=== PATIENT | female | born 1975 | race Hispanic/Latino ===

== ENCOUNTER 2018-12-31 12:45 | Outpatient (CLI) | payer OTHER ==
--- NOTE | 2018-12-31 14:35 | Mammography Report ---
Bilateral diagnostic mammogram with spot compression of densities right and left breast: No previous studies available. CAD study utilized. History: Right breast lumps. Findings: Predominance of adipose tissue bilaterally. Focal ill-defined density measuring 7 mm in diameter at the upper posterior right breast with a 3 mm density adjacent to the chest wall in the upper posterior right breast. There is a 1 cm focal asymmetry noted in the upper mid left breast and ill-defined density in the upper posterior left breast. Spot compression of densities right breast previous effacement of densities without the presence of discrete mass. There is asymmetric 1 cm density identified in the upper posterior left breast on spot compression views and incidentally noted 1 cm asymmetry outside the compression views and the lower left breast. Impression: Sonographic examination of right breast palpable areas is recommended. Sonographic examination of asymmetric densities left breast also recommended. BI-RADS CATEGORY: 0 = Needs additional imaging evaluation ACR BI-RADS MAMMOGRAPHIC CODES: 0 = Needs additional imaging evaluation; 1 = Negative; 2 = Benign; 3 = Probably benign; 4 = Suspicious; 5 = Malignant; 6 = Known biopsy-proven malignancy COMMENT: 1. Dense breast tissue, i.e., adenosis, fibrocystic changes, etc., may obscure an underlying neoplasm. 2. Approximately 10% of cancers are not detected with mammography. 3. A negative mammography report should not delay biopsy if a clinically suspicious mass is present. COMMENT: Patient follow-up letters are generated in [employer].
== END 2018-12-31 12:46 | disposition home or self-care (01) ==
LOC: MAMMO 12:45
PROVIDERS: ATTEND Obstetrics & Gynecology
DX: N63.13 Unspecified lump in the right breast, lower outer quadrant (principal)
CPT/HCPCS: 77066

== ENCOUNTER 2019-01-14 12:57 | Outpatient (CLI) | payer OTHER ==
--- NOTE | 2019-01-17 12:50 | Ultrasound Report ---
BILATERAL BREAST ULTRASOUND: 01/14/19 12:57:00 CLINICAL: Right palpable lumps and left upper asymmetric densities. COMPARISON: 12/31/18 mammogram FINDINGS: Ultrasound of the right breast is performed with the patient feels lumps. A prominent fat lobule versus isoechoic mass at 4 o'clock 4 cm from the nipple measures 6 x 3 x 6 mm. A benign intramammary lymph node with central fat at 4 o'clock 4 cm from the nipple measures 7 x 2 x 3 mm.An oval heterogeneous hypoechoic intradermal mass in the axilla correlates with a palpable lump and measures 4 x 3 x 3 mm. Ultrasound of the left breast demonstrated a benign cyst at 3 o'clock 8 cm from the nipple measuring 3 x 4 x 2 mm and a retroareolar nodule or lymph node with central echogenicity at 6 o'clock measuring 4 x 4 x 2 mm. IMPRESSION: Probably benign bilateral findings. Recommend 6 month followup bilateral targeted breast ultrasound to reevaluate right lesions at 4 o'clock 4 cm from the nipple and left lesions at 3 o'clock 8 cm from the nipple and retroareolar at 6 o'clock. BI-RADS 3 - - Probably Benign
== END 2019-01-14 12:58 | disposition home or self-care (01) ==
LOC: US 12:57
PROVIDERS: ATTEND Obstetrics & Gynecology
DX: N63.13 Unspecified lump in the right breast, lower outer quadrant (principal)

== ENCOUNTER 2022-01-21 13:07 | Outpatient (CLI) | payer OTHER | END 2022-01-21 13:08 | disposition home or self-care (01) | LOC: SPVWC 13:07 | PROVIDERS: ATTEND Obstetrics & Gynecology | DX: Z12.31 Encounter for screening mammogram for malignant neoplasm of breast (principal) | CPT/HCPCS: 77063; 77067 ==